=== PATIENT | female | born 1985 | race American Indian/Alaskan Native ===

== ENCOUNTER 2016-09-28 23:23 | Emergency (ER) | payer MEDICARE, OTHER ==
[2016-09-28 23:42] VITALS: BP 128/71
--- NOTE | 2016-09-28 23:57 | Emergency Department Report ---
Chief Complaint: Chest Pain Stated Complaint: CHEST PAIN, MIGRAINE, NAUSEA Time Seen by Provider: 09/28/16 23:52 - HPI History of Present Illness: 31-year-old female comes in with chest pain this started 3 days ago. She reports that it feels like her chest is caving in she's having shortness of breathing worse when she lies down. She does report that she has a breast mass in her left breast. She is waiting to be seen at the [facility] for that. He complains of nausea no vomiting - Exam Vital Signs: Vital Signs 09/28/16 23:34 Temperature 98.6 F Pulse Rate 63 Blood Pressure 128/71 O2 Sat by Pulse 100 Oximetry Physical Exam: Patient alert and oriented 3 respiratory clear to auscultation cardiac S1-S2 regular rate and rhythm MSE screening note: Focused history and physical exam performed. Due to findings the following was ordered: Triage protocol order for chest pain patient be evaluated in main ER ED Disposition for MSE Condition: Stable
[2016-09-29 00:14] LABS: Hematocrit 39.5 % (30.3-42.9); Mean Corpuscular HGB Conc 33 % (30-34); Mean Corpuscular Hemoglobin 31 pg (28-32); Mean Corpuscular Volume 93 fl (79-97); Platelet Count 195 K/mm3 (140-440); Red Blood Count 4.23 M/mm3 (3.65-5.03); White Blood Count 5.8 K/mm3 (4.5-11.0)
[2016-09-29 00:34] LABS: BUN/Creatinine Ratio 17.14; Blood Urea Nitrogen 12 mg/dL (7-17); Calcium 8.5 mg/dL (8.4-10.2); Carbon Dioxide 24 mmol/L (22-30); Glucose 89 mg/dL (65-100); Potassium 3.8 mmol/L (3.6-5.0); Sodium 142 mmol/L (137-145)
[2016-09-29 00:38] LABS: Anion Gap 17 mmol/L
--- NOTE | 2016-09-29 10:10 | XRay Report ---
CHEST TWO VIEWS: 09/29/16 CLINICAL: Chest pain. COMPARISON: None FINDINGS: Normal heart and pulmonary vasculature. The lungs are normally expanded and clear.Very mild levoscoliosis of the midthoracic spine. IMPRESSION: No acute cardiopulmonary process.
--- NOTE | 2016-09-30 15:41 | ED Elopement Review ---
ED Pt Elopement review - Results review Lab results: Laboratory Tests 09/29/16 09/29/16 09/29/16 00:04 00:04 02:01 WBC 5.8 RBC 4.23 Hgb 13.0 Hct 39.5 MCV 93 MCH 31 MCHC 33 RDW 13.0 L Plt Count 195 Sodium 142 Potassium 3.8 Chloride 105.0 Carbon Dioxide 24 Anion Gap 17 BUN 12 Creatinine 0.7 Estimated GFR > 60 BUN/Creatinine Ratio 17.14 Glucose 89 Calcium 8.5 Troponin T < 0.010 Urine HCG, Qual Negative - Call Back decision Pt Call Back Decision: No action required
== END 2016-09-29 00:15 | disposition left against medical advice (07) ==
LOC: ED 23:23
DX: R07.9 Chest pain, unspecified (principal); R06.02 Shortness of breath; R11.0 Nausea; Z53.21 Procedure and treatment not carried out due to patient leaving prior to being seen by health care provider
CPT/HCPCS: 36415; 71020; 80048; 81025; 84484; 85027; 93005; 93010

== ENCOUNTER 2016-11-30 21:59 | Emergency (ER) | payer MEDICARE, OTHER ==
[2016-11-30 22:14] VITALS: BP 123/70
[2016-11-30 23:32] LABS: Basophils % (Auto) 0.3 % (0.0-1.8); Eosinophils % (Auto) 2.9 % (0.0-4.3); Hematocrit 36.1 % (30.3-42.9); Mean Corpuscular HGB Conc 33 % (30-34); Mean Corpuscular Hemoglobin 31 pg (28-32); Mean Corpuscular Volume 93 fl (79-97); Platelet Count 206 K/mm3 (140-440); Red Blood Count 3.89 M/mm3 (3.65-5.03); Red Cell Distribution Width 13.3 % (13.2-15.2); White Blood Count 6.4 K/mm3 (4.5-11.0)
[2016-12-01 00:23] LABS: Alanine Aminotransferase 8 units/L (7-56); Albumin/Globulin Ratio 1.3 %; Alkaline Phosphatase 58 units/L (35-129); Anion Gap 16 mmol/L; BUN/Creatinine Ratio 18.33; Bilirubin,Total 0.2 mg/dL (0.1-1.2); Blood Urea Nitrogen 11 mg/dL (7-17); Calcium 8.8 mg/dL (8.4-10.2); Carbon Dioxide 26 mmol/L (22-30); Chloride 103.5 mmol/L (98-107); Glucose 77 mg/dL (65-100); Potassium 4.1 mmol/L (3.6-5.0); Sodium 141 mmol/L (137-145); Total Protein 7.1 g/dL (6.3-8.2)
[2016-12-01 01:29] LABS: Bilirubin,Urine NEG (Negative); Blood,Urine NEG (Negative); Ketones,Urine NEG (Negative); Leukocyte Esterase,Urine NEG (Negative); Mucus,Urine 1+ /HPF; Nitrite,Urine NEG (Negative); Protein,Urine <15 mg/dL mg/dL (Negative)
--- NOTE | 2016-12-03 01:16 | ED Elopement Review ---
ED Pt Elopement review - Results review Lab results: Laboratory Tests 11/30/16 11/30/16 12/01/16 23:03 23:03 00:49 WBC 6.4 RBC 3.89 Hgb 12.0 Hct 36.1 MCV 93 MCH 31 MCHC 33 RDW 13.3 Plt Count 206 Lymph % (Auto) 39.8 H [place] % (Auto) 10.2 H Eos % (Auto) 2.9 Baso % (Auto) 0.3 Lymph # 2.5 [place] # 0.7 Eos # 0.2 Baso # 0.0 Seg Neutrophils % 46.8 Seg Neutrophils # 3.0 Sodium 141 Potassium 4.1 Chloride 103.5 Carbon Dioxide 26 Anion Gap 16 BUN 11 Creatinine 0.6 L Estimated GFR > 60 BUN/Creatinine Ratio 18.33 Glucose 77 Calcium 8.8 Total Bilirubin 0.2 AST 16 ALT 8 Alkaline Phosphatase 58 Total Protein 7.1 Albumin 4.0 Albumin/Globulin Ratio 1.3 Urine Color Yellow Urine Turbidity Clear Urine pH 6.0 Ur Specific [place] 1.024 Urine Protein <15 mg/dl Urine Glucose (UA) Neg Urine Ketones Neg Urine Blood Neg Urine Nitrite Neg Urine Bilirubin Neg Urine Urobilinogen 2.0 Ur Leukocyte Esterase Neg Urine WBC (Auto) 1.0 Urine RBC (Auto) 2.0 U Epithel Cells (Auto) 14.0 H Amorphous Crystals 1+ Urine Mucus 1+ Urine HCG, Qual Negative - Call Back decision Pt Call Back Decision: No action required
== END 2016-12-01 01:00 | disposition left against medical advice (07) ==
LOC: ED 21:59
DX: R10.2 Pelvic and perineal pain (principal); M54.5 Low back pain; R07.9 Chest pain, unspecified; Z53.21 Procedure and treatment not carried out due to patient leaving prior to being seen by health care provider
CPT/HCPCS: 36415; 80053; 81001; 81025; 85025

== ENCOUNTER 2017-05-03 12:32 | Emergency (ER) | payer MEDICARE, OTHER ==
[2017-05-03 12:54] VITALS: BP 123/87
[2017-05-03 13:22] LABS: Basophils % (Auto) 0.8 % (0.0-1.8); Eosinophils % (Auto) 0.2 % (0.0-4.3); Hematocrit 39.4 % (30.3-42.9); Mean Corpuscular HGB Conc 33 % (30-34); Mean Corpuscular Hemoglobin 31 pg (28-32); Mean Corpuscular Volume 93 fl (79-97); Platelet Count 177 K/mm3 (140-440); Red Blood Count 4.24 M/mm3 (3.65-5.03); Red Cell Distribution Width 12.7 % (13.2-15.2); White Blood Count 6.3 K/mm3 (4.5-11.0)
[2017-05-03 13:33] LABS: Anion Gap 18 mmol/L; Blood Urea Nitrogen 14 mg/dL (7-17); Calcium 9.2 mg/dL (8.4-10.2); Carbon Dioxide 23 mmol/L (22-30); Chloride 103.7 mmol/L (98-107); Glucose 82 mg/dL (65-100); Potassium 4.2 mmol/L (3.6-5.0); Sodium 140 mmol/L (137-145)
[2017-05-03] MEDS ORDERED: MOTRIN PO ONE (14:17)
--- NOTE | 2017-05-03 14:21 | Emergency Department Report ---
ED Chest Pain HPI - General Chief Complaint: Chest Pain Stated Complaint: CHEST PAIN Time Seen by Provider: 05/03/17 14:05 Source: patient Mode of arrival: Ambulatory Limitations: No Limitations - History of Present Illness Initial Comments: 31-year-old female here with complaint of chest pain. It was showed rather violently by roommate at approximately 8 AM. She has some chest pain with palpation and chest pain with deep breath. She has no shortness of breath. His fevers chills nausea vomiting. She does have some left lip swelling but she says that was a cut from her braces. Pain Location: substernal Pain Radiation: none Quality: aching Improves With: nothing Worsens With: palpation re: denies: nausea, vomting, diaphoresis, dyspnea, sense of impending doom - Related Data Home Medications Medication Instructions Recorded Confirmed Last Taken Duloxetine HCl [DULoxetine] 60 mg PO DAILY 05/13/16 05/13/16 Unknown Ondansetron [Zofran Odt] 4 mg PO Q8HR 05/13/16 05/13/16 Unknown Previous Rx's Medication Instructions Recorded Last Taken Type Diazepam Tab [Valium] 5 mg PO Q8H PRN #18 tab 07/20/13 Unknown Rx HYDROcodone/APAP 7.5-325 [[place] 1 each PO Q8HR PRN #10 tablet 05/13/16 Unknown Rx 7.5-325 mg TAB] Ibuprofen [Motrin 600 MG tab] 600 mg PO ONCE #30 tablet 05/03/17 Unknown Rx Allergies Allergy/AdvReac Type Severity Reaction Status Date / Time No Known Allergies Allergy Verified 03/14/14 01:44 Heart Score - HEART Score History: Slightly suspicious EKG: Normal Age: < 45 Risk factors: No known risk factors Troponin: < normal limit HEART Score: 0 ED Review of Systems ROS: Stated complaint: CHEST PAIN Other details as noted in HPI Comment: All other systems reviewed and negative Constitutional: denies: chills, fever Eyes: denies: eye pain, eye discharge, vision change ENT: denies: ear pain, throat pain Respiratory: denies: cough, shortness of breath, wheezing Cardiovascular: chest pain. denies: palpitations Endocrine: no symptoms reported Gastrointestinal: denies: abdominal pain, nausea, diarrhea Genitourinary: denies: urgency, dysuria, discharge Musculoskeletal: denies: back pain, joint swelling, arthralgia Skin: denies: rash, lesions Neurological: denies: headache, weakness, paresthesias Psychiatric: denies: anxiety, depression Hematological/Lymphatic: denies: easy bleeding, easy bruising ED Past Medical Hx - Past Medical History Previous Medical History?: Yes Hx of Cancer: Yes (stage 3 breast cancer) Hx Headaches / Migraines: Yes Hx Psychiatric Treatment: Yes (PTSD) Additional medical history: chronic back pain; migraine, lump in breast and upper chest - Surgical History Past Surgical History?: Yes Hx Breast Surgery: Yes Additional Surgical History: minor eye surgery. head injury. port to right chest wall - Social History Smoking Status: Never Smoker Substance Use Type: None - Medications Home Medications: Home Medications Medication Instructions Recorded Confirmed Last Taken Type Diazepam Tab [Valium] 5 mg PO Q8H PRN #18 tab 07/20/13 05/13/16 Unknown Rx Duloxetine HCl [DULoxetine] 60 mg PO DAILY 05/13/16 05/13/16 Unknown History HYDROcodone/APAP 7.5-325 [[place] 1 each PO Q8HR PRN #10 tablet 05/13/16 Unknown Rx 7.5-325 mg TAB] Ondansetron [Zofran Odt] 4 mg PO Q8HR 05/13/16 05/13/16 Unknown History Ibuprofen [Motrin 600 MG tab] 600 mg PO ONCE #30 tablet 05/03/17 Unknown Rx ED Physical Exam - General Limitations: No Limitations General appearance: alert, in no apparent distress - Head Head exam: Present: atraumatic, normocephalic - Eye Eye exam: Present: normal appearance - ENT ENT exam: Present: mucous membranes moist, other (upper lip swollen) - Neck Neck exam: Present: normal inspection - Respiratory Respiratory exam: Present: normal lung sounds bilaterally. Absent: respiratory distress, wheezes, rales - Cardiovascular Cardiovascular Exam: Present: regular rate, normal rhythm, normal heart sounds, other (tenderness to palpation over sternum). Absent: systolic murmur, diastolic murmur, rubs, gallop - GI/Abdominal GI/Abdominal exam: Present: soft, normal bowel sounds - Extremities Exam Extremities exam: Present: normal inspection - Back Exam Back exam: Present: normal inspection - Neurological Exam Neurological exam: Present: alert, oriented X3 - Psychiatric Psychiatric exam: Present: normal affect, normal mood - Skin Skin exam: Present: warm, dry, intact, normal color. Absent: rash ED Course Vital Signs 05/03/17 12:49 Temperature 98.8 F Pulse Rate 68 Respiratory 18 Rate Blood Pressure 123/87 O2 Sat by Pulse 100 Oximetry ED Medical Decision Making - Lab Data Result diagrams: 05/03/17 13:01 05/03/17 13:01 Laboratory Results - last 24 hr 05/03/17 05/03/17 05/03/17 13:01 13:01 13:01 WBC 6.3 RBC 4.24 Hgb 13.0 Hct 39.4 MCV 93 MCH 31 MCHC 33 RDW 12.7 L Plt Count 177 Lymph % (Auto) 24.1 [place] % (Auto) 8.3 H Eos % (Auto) 0.2 Baso % (Auto) 0.8 Lymph # 1.5 [place] # 0.5 Eos # 0.0 Baso # 0.0 Seg Neutrophils % 66.6 Seg Neutrophils # 4.2 Sodium 140 Potassium 4.2 Chloride 103.7 Carbon Dioxide 23 Anion Gap 18 BUN 14 Creatinine 0.7 Estimated GFR > 60 BUN/Creatinine Ratio 20.00 Glucose 82 Calcium 9.2 Troponin T < 0.010 HCG, Qual Negative - EKG Data -: EKG Interpreted by Dc - EKG Data 05/03/17 14:20 Normal sinus rhythm rate of 63 normal axis normal intervals and no ST-T wave changes. - Medical Decision Making 31-year-old female here with muscular skeletal chest pain. States showed very hard in the chest. Workup ordered prior to my evaluation. Plain chest x-ray and anticipated discharge with NSAIDs. Chest x-ray is unremarkable. Patient will be discharged home. Portions of this chart were dictated with dictation software. There may be dictation errors contained within this note. Critical care attestation.: If time is entered above; I have spent that time in minutes in the direct care of this critically ill patient, excluding procedure time. ED Disposition Clinical Impression: Musculoskeletal chest pain Disposition: TO HOME OR SELFCARE Is pt being admited?: No Condition: Stable Instructions: Chest Pain (ED) Prescriptions: Ibuprofen [Motrin 600 MG tab] 600 mg PO ONCE #30 tablet Referrals: PRIMARY CARE, [Primary Care Provider] - 3-5 Days
--- NOTE | 2017-05-03 14:39 | XRay Report ---
ROUTINE CHEST, TWO VIEWS: HISTORY: chest pain. The trachea, heart, mediastinal contour, lung martinez and bony thorax are unremarkable. A right [id number] has been inserted since 09/29/16. IMPRESSION: Unremarkable chest x-ray.
== END 2017-05-03 17:03 | disposition home or self-care (01) ==
LOC: ED 12:32
DX: R07.89 Other chest pain (principal); G43.909 Migraine, unspecified, not intractable, without status migrainosus; F43.10 Post-traumatic stress disorder, unspecified; G89.29 Other chronic pain; Z85.3 Personal history of malignant neoplasm of breast
CPT/HCPCS: 36415; 71020; 80048; 84484; 84703; 85025; 93005; 93010

== ENCOUNTER 2017-05-31 23:28 | Emergency (ER) | payer MEDICARE, OTHER ==
[2017-06-01 00:35] VITALS: BP 116/73
[2017-06-01 03:02] LABS: Bilirubin,Urine NEG (Negative); Blood,Urine NEG (Negative); Ketones,Urine NEG (Negative); Leukocyte Esterase,Urine NEG (Negative); Mucus,Urine 3+ /HPF; Nitrite,Urine NEG (Negative)
== END 2017-06-01 06:00 | disposition left against medical advice (07) ==
LOC: ED 23:28
DX: M54.9 Dorsalgia, unspecified (principal); G89.29 Other chronic pain; Z53.21 Procedure and treatment not carried out due to patient leaving prior to being seen by health care provider
CPT/HCPCS: 81001; 81025